=== PATIENT | female | born 1965 | race Caucasian/White ===

== ENCOUNTER → 2021-05-24 | Outpatient (CLI) | payer OTHER ==
--- NOTE | 2021-05-28 07:52 | MM ---
Reason for exam: screening (asymptomatic). Last mammogram was performed 8 years and 3 months ago. History: Patient is postmenopausal. Physical Findings: A clinical breast exam by your physician is recommended on an annual basis and results should be correlated with mammographic findings. MG Screening Mammo w CAD Bilateral CC and MLO view(s) were taken. Prior study comparison: March 08, 2013, bilateral digital screening mammo w/CAD. The breast tissue is heterogeneously dense. This may lower the sensitivity of mammography. Focal asymmetry upper left MLO view zone B. This finding is changed when compared with previous exams. ASSESSMENT: Incomplete: need additional imaging evaluation, BI-RAD 0 RECOMMENDATION: Special view mammogram of the left breast. If lesion persists on supplemental views, image directed ultrasound is recommended. [facility] will attempt to contact patient to return for supplemental views and ultrasound if indicated.
== END | disposition home or self-care (01) ==
LOC: RADMAMWWP 09:51
PROVIDERS: ATTEND Family Medicine
DX: Z12.31 Encounter for screening mammogram for malignant neoplasm of breast (principal)
CPT/HCPCS: 77067

== ENCOUNTER → 2021-05-30 | Outpatient (CLI) | payer OTHER ==
--- NOTE | 2021-06-05 11:27 | MM ---
Reason for exam: additional evaluation requested from abnormal screening. Last mammogram was performed less than 1 month ago. History: Patient is postmenopausal. Physical Findings: Nurse did not find any significant physical abnormalities on exam. MG Work Up Mamm w CAD LT Spot compression CC, spot compression MLO, and LM view(s) were taken of the left breast. Prior study comparison: May 24, 2021, bilateral MG screening mammo w CAD. The breast tissue is heterogeneously dense. This may lower the sensitivity of mammography. No persisting distortion left upper outer quadrant. These results were verbally communicated with the patient and result sheet given to the patient on 05/30/21. ASSESSMENT: Probably benign, BI-RAD 3 RECOMMENDATION: Follow-up diagnostic mammogram of the left breast in 6 months.
== END | disposition home or self-care (01) ==
LOC: RADMAMWWP 13:38
PROVIDERS: ATTEND Family Medicine
DX: R92.8 Other abnormal and inconclusive findings on diagnostic imaging of breast (principal)
CPT/HCPCS: 77065

== ENCOUNTER → 2021-10-05 | Outpatient (CLI) | payer OTHER ==
--- NOTE | 2021-10-05 16:12 | BD ---
EXAMINATION TYPE: Axial Bone Density DATE OF EXAM: 10/05/2021 COMPARISON: NONE CLINICAL HISTORY: Height: 62.2 IN Weight: 126 LBS RISK FACTORS HISTORY OF: Family History of Osteoporosis: YES MOTHER Active: YES Diet low in dairy products/other sources of calcium: YES Postmenopausal woman: AGE 51 MEDICATIONS: Thyroid Medications: YES Which medication: Synthroid How Lon MONTHS Additional Medications: CALCIUM, VIT D, SYNTHROID, EXAM MEASUREMENTS: Bone mineral densitometry was performed using the Squee System. Bone mineral density as measured about the Lumbar spine is: ----- L1-L4(G/cm2): 0.843 T Score Values are as follows: ----- L2: -3.2 ----- L3: -2.5 ----- L4: -2.6 ----- L1-L4: -2.8 Bone mineral density BASELINE Bone mineral density about the R hip (g/cm2): 0.693 Bone mineral density about the L hip (g/cm2): 0.652 T Score values are as follows: -----R Neck: -2.5 -----L Neck: -2.8 -----R Total: -2.8 -----L Total: -2.6 Bone mineral density BASELINE IMPRESSION: Osteoporosis (T Score less than -2.5). There is increased fracture risk and therapy is usually indicated based on age. Re-Screen 1-2 years. NOTE: T-SCORE=SD OF THE YOUNG ADULT MEAN.
== END | disposition home or self-care (01) ==
LOC: RADBDWWP 09:57
PROVIDERS: ATTEND Family Medicine
DX: Z13.820 Encounter for screening for osteoporosis (principal); M81.0 Age-related osteoporosis without current pathological fracture
CPT/HCPCS: 77080

== ENCOUNTER → 2022-02-13 | Outpatient (CLI) | payer OTHER ==
--- NOTE | 2022-02-13 13:33 | MM ---
Reason for exam: follow-up at short interval from prior study. Last mammogram was performed 9 months ago. History: Patient is postmenopausal. Physical Findings: A clinical breast exam by your physician is recommended on an annual basis and results should be correlated with mammographic findings. MG 3D Diag Mammo W/Cad LT CC and MLO view(s) were taken of the left breast. Prior study comparison: May 30, 2021, left breast MG work up mamm w CAD LT. May 24, 2021, bilateral MG screening mammo w CAD. There are scattered fibroglandular densities. There is no discrete abnormality. No significant new findings when compared with previous films. Results were given to the patient verbally at the time of the exam. ASSESSMENT: Negative, BI-RAD 1 RECOMMENDATION: Return to routine screening mammogram schedule for both breasts. Back on schedule.
== END | disposition home or self-care (01) ==
LOC: RADMAMWWP 12:53
PROVIDERS: ATTEND Family Medicine
DX: R92.8 Other abnormal and inconclusive findings on diagnostic imaging of breast (principal)
CPT/HCPCS: 77065; G0279; 77061

== ENCOUNTER → 2022-09-06 | Outpatient (CLI) | payer OTHER ==
--- NOTE | 2022-09-09 19:16 | MM ---
Reason for Exam: Screening (asymptomatic). Last mammogram was performed 1 year(s) and 4 month(s) ago. Patient History: Menarche at age 14. First Full-Term at age 26. Postmenopausal. Risk Values: Grace 5 year model risk: 1.4%. NCI Lifetime model risk: 8.9%. Prior Study Comparison: 05/24/2021 Bilateral Screening Mammogram, [facility]. 05/30/2021 Left Diagnostic Mammogram, [facility]. 02/13/2022 Left Diagnostic Mammogram, [facility]. Tissue Density: The breast tissue is heterogeneously dense. This may lower the sensitivity of mammography. Findings: Analyzed By CAD. Areas of asymmetric density remain unchanged. Faint vascular calcifications noted posterior central right cc view. There is no suspicious group of microcalcifications or new suspicious mass in either breast. Overall Assessment: Benign, BI-RAD 2 Management: Screening Mammogram of both breasts in 1 year. 1. Patient should continue monthly self breast exams. 2. A clinical breast exam by your physician is recommended on an annual basis. 3. This exam should not preclude additional follow-up of suspicious palpable abnormalities. Electronically signed and approved by: Rishi Guzman M.D. Radiologist
== END | disposition home or self-care (01) ==
LOC: RADMAMWWP 13:35
PROVIDERS: ATTEND Family Medicine
DX: Z12.31 Encounter for screening mammogram for malignant neoplasm of breast (principal); Z78.0 Asymptomatic menopausal state
CPT/HCPCS: 77063; 77067